=== PATIENT | male | born 1965 | race African-American/Black ===

== ENCOUNTER 2016-08-29 08:09 | Emergency (ER) | payer MEDICAID, OTHER ==
[~2016-08-29] VITALS: Ht 185.4 cm; Wt 127.0 kg
[~2016-08-29 08:09] MED LIST: IBUPROFEN600 MG ORAL; NORCO 5-325 TA1 EACH ORAL
[2016-08-29 08:25] VITALS: BP 150/85
[2016-08-29 08:55] VITALS: BP 150/85
[2016-08-29] MEDS ORDERED: IBUPROFEN600 MG ORAL (08:55)
[2016-08-29] MEDS ORDERED: ROBAXIN-750750 MG PO (08:55)
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
== END 2016-08-29 08:55 | disposition home or self-care (01) ==
LOC: EMR 08:44
DX: S13.9XXA Sprain of joints and ligaments of unspecified parts of neck, initial encounter (principal); V43.52XA Car driver injured in collision with other type car in traffic accident, initial encounter; Y92.9 Unspecified place or not applicable; I10 Essential (primary) hypertension
CPT/HCPCS: 99284